=== PATIENT | female | born 1940 | race Caucasian/White ===

== ENCOUNTER 2017-07-30 11:32 | Inpatient (IN) | payer MEDICARE ==
[~2017-07-30] VITALS: Ht 167.6 cm; Wt 64.8 kg
[~2017-07-30 11:32] MED LIST: ALPR1 PO; BISA10S PR; CALCA500CH PO; CALCIUM PO; CIPR500 PO; ERYSTE250 PO; ESTR2 PO; FENTANYL1 EAC1 TD; K-Dur20 MEQ PO; LEVSOD125 PO; LORA.5 PO; LORA1 PO; Lomotil Tablet1 EACH PO; METO10 PO; METR500 PO; OMEPRAZOLE MAGN20 MG; ONDA4 PO; ONDA4ODT SL; ONDA8 SL; OXYC5 PO; PANT40 PO; PROM25 PO; Prilosec Otc20 MG PO; RANI150 PO; RXLORA1 PO; SPIR50 PO; VITAMIN B122500 MC1 PO; ZINC PO; [UNRECOGNIZED DRUG - REMARK]; [UNRECOGNIZED DRUG - REMARK]
[2017-07-30 12:16] LABS: Hematocrit 19.6 % (33.0-51.0); Hemoglobin 6.4 g/dL (11.5-16.0); Mean Corpuscular HGB 29.9 pg (26.0-34.0); Mean Corpuscular HGB Conc 32.7 g/dL (31.5-36.5); Mean Corpuscular Volume 92 fL (80-100); NRBC ABSOLUTE 2.66 K/mm3 (0.00-0.02); NRBC Auto 4.6 /100 WBC (0.0-0.2); Platelet Count 80 K/mm3 (150-400); RDW Standard Deviation 69.1 fL (35.1-46.3); Red Blood Cell Count 2.14 M/mm3 (3.80-5.20)
[2017-07-30 12:20] LABS: White Blood Cell Count 57.25 K/mm3 (4.00-11.30)
[2017-07-30 12:28] LABS: Bilirubin, Direct 13.8 mg/dL (0.0-0.3); Bilirubin, Indirect 3.4 mg/dL (0.1-0.7); Bilirubin, Total 17.2 mg/dL (0.1-1.0)
[2017-07-30 12:30] LABS: International Normalized Ratio 1.13; Prothrombin Time Results 11.8 Sec (9.7-11.5)
[2017-07-30 12:37] LABS: BAND PERCENT MAN 2 % (0-8); BASOPHILS PERCENT MAN 0 % (0-2); EOSINOPHILS PERCENT MAN 0 % (0-6); LYMPHOCYTES PERCENT MAN 18 % (21-46); METAMYELOCYTE ABSOLUTE MAN 5.15 K/mm3 (0.00-0.00); METAMYELOCYTE PERCENT MAN 9 % (0-0); MONOCYTES ABSOLUTE MAN 3.43 K/mm3 (0.16-1.47); MONOCYTES PERCENT MAN 6 % (4-13); NEUTROPHILS ABSOLUTE MAN 38.35 K/mm3 (1.96-9.15); SEG NEUTROPHILS PERCENT MAN 65 % (41-73); TOTAL CELLS COUNTED 100
[2017-07-30 12:39] LABS: Alanine Aminotransfer (ALT/SGP 182 U/L (12-78); Albumin, Blood 1.3 g/dL (3.4-5.0); Albumin/Globulin Ratio 0.5 (0.8-1.8); Alk Phos 390 U/L (50-136); Anion Gap 11 mmol/L (6-16); Aspartate Aminotrans (AST/SGOT 298 U/L (12-37); Bilirubin, Total 17.3 mg/dL (0.1-1.0); Blood Urea Nitrogen 16 mg/dL (8-24); Bun/Creatinine Ratio 32.4 (12.0-20.0); CO2, Blood 20 mmol/L (21-32); Chloride, Blood 113 mmol/L (98-108); Creatinine, Blood 0.49 mg/dL (0.40-1.00); Globulin, Blood 2.6 g/dL (2.2-4.0); Glomerular Filtration Rate >60 (60-); Glucose, Blood 94 mg/dL (70-99); Potassium, Blood 2.4 mmol/L (3.5-5.5); Sodium, Blood 144 mmol/L (136-145); Total Protein, Blood 3.9 g/dL (6.4-8.2)
--- NOTE | 2017-07-30 19:32 | NUR ---
ADMIT NOTE/ SHIFT SUMMARY- PT ADMITTED FOR GI BLEED. PER REPORT PT HAS BEEN HAVING FREQUENT NOSE BLEEDS AND THE FAMILY THOUGHT THE BLOOD IN THE STOOL WAS D/T THE PT SWALLOWING BLOOD. THERE IS A STRONG ODOR TO THE STOOL. PT SKIN IS VERY JAUNDICED AND SHE HAS STAGE 4 PANCREATIC CANCER WITH BALA. PT IS CURRENTLY RECIEVING BLOOD THROUGH HER RIGHT FA IV RECIEVING PROTONIX THROUGH HER LEFT HAND IV AND POTASSIUM THROUGH HER ACCESSED MEDIPORT. PT HAS BEEN RECIEVING REGULAR CHEMO Tx TO THIS POINT. PER REPORT FROM ED PT SPOUSE IS HAVING DIFFICULTY COPING WITH THE PT CONDITION. SHE WAS FULL CODE ALL DAY IN THE ED, UNTIL SHE STATED "NO, I DON'T WANT THAT" (PER REPORT). PT CAME TO MEDICAL FLOOR A DNR. PT HAS IV ANTIBIOTICS IN THE ROOM READY TO RUN WELL IV FLUIDS WITH POTASSIUM. ALL OF THIS WAS PASSED TO ADARSH WOOTEN IN REPORT. SECOND AND FINAL UNIT OF BLOOD WAS STARTED AT SHIFT CHANGE.
[2017-07-30 23:15] LABS: Hematocrit 27.8 % (33.0-51.0); Hemoglobin 9.5 g/dL (11.5-16.0)
[2017-07-31 05:06] LABS: Hematocrit 29.9 % (33.0-51.0); Mean Corpuscular HGB 30.7 pg (26.0-34.0); Mean Corpuscular HGB Conc 33.4 g/dL (31.5-36.5); Mean Corpuscular Volume 92 fL (80-100); NRBC ABSOLUTE 4.13 K/mm3 (0.00-0.02); NRBC Auto 6.4 /100 WBC (0.0-0.2); Platelet Count 99 K/mm3 (150-400); RDW Coefficient Variation 18.3 % (11.7-14.2); RDW Standard Deviation 56.6 fL (35.1-46.3); Red Blood Cell Count 3.26 M/mm3 (3.80-5.20)
[2017-07-31 05:10] LABS: White Blood Cell Count 64.65 K/mm3 (4.00-11.30)
[2017-07-31 05:18] LABS: International Normalized Ratio 1.13; Prothrombin Time Results 11.8 Sec (9.7-11.5)
[2017-07-31 05:25] LABS: Alanine Aminotransfer (ALT/SGP 171 U/L (12-78); Albumin, Blood 1.2 g/dL (3.4-5.0); Albumin/Globulin Ratio 0.4 (0.8-1.8); Alk Phos 375 U/L (50-136); Anion Gap 11 mmol/L (6-16); Aspartate Aminotrans (AST/SGOT 307 U/L (12-37); Bilirubin, Direct 13.4 mg/dL (0.0-0.3); Bilirubin, Indirect 3.7 mg/dL (0.1-0.7); Bilirubin, Total 17.1 mg/dL (0.1-1.0); Blood Urea Nitrogen 18 mg/dL (8-24); Bun/Creatinine Ratio 26.3 (12.0-20.0); CO2, Blood 18 mmol/L (21-32); Calcium, Blood 6.4 mg/dL (8.5-10.1); Chloride, Blood 122 mmol/L (98-108); Creatinine, Blood 0.68 mg/dL (0.40-1.00); Glomerular Filtration Rate >60 (60-); Glucose, Blood 77 mg/dL (70-99); Potassium, Blood 3.4 mmol/L (3.5-5.5); Sodium, Blood 151 mmol/L (136-145); Total Protein, Blood 4.2 g/dL (6.4-8.2)
[2017-07-31 05:28] LABS: BAND PERCENT MAN 4 % (0-8); BASOPHILS PERCENT MAN 0 % (0-2); EOSINOPHILS PERCENT MAN 0 % (0-6); LYMPHOCYTES % ATYPICAL MANUAL 1 % (0-0); LYMPHOCYTES ABSOLUTE MAN 13.57 K/mm3 (0.84-5.20); LYMPHOCYTES PERCENT MAN 20 % (21-46); METAMYELOCYTE ABSOLUTE MAN 3.87 K/mm3 (0.00-0.00); METAMYELOCYTE PERCENT MAN 6 % (0-0); MONOCYTES ABSOLUTE MAN 3.87 K/mm3 (0.16-1.47); MONOCYTES PERCENT MAN 6 % (4-13); MYELOCYTE ABSOLUTE MAN 1.29 K/mm3 (0.00-0.00); MYELOCYTE PERCENT MAN 2 % (0-0); NEUTROPHILS ABSOLUTE MAN 42.02 K/mm3 (1.96-9.15); SEG NEUTROPHILS PERCENT MAN 61 % (41-73); TOTAL CELLS COUNTED 100
--- NOTE | 2017-07-31 07:07 | NUR ---
SUMMARY PT RESTING QUIETLY, MEDICATED FREQUENTLY FOR PAIN PER EMAR, PT UP WITH 1 PERSON ASSIST, FORGETFUL, PLEASANT, VSS, NO ACUTE CHANGES
--- NOTE | 2017-07-31 16:09 | NUR ---
NOTIFIED SPOUSE OF TRANSFER TO ROOM 353.
--- NOTE | 2017-07-31 19:26 | NUR ---
PT ARRIVED TO ROOM 353 AROUND 1600, PT A/OX3, UP WITH ASSIST, PT IS PLEASANT AND COOPERATIVE, PT DENIED ANY PAIN AT THIS TIME, PT ORIENTED TO THE CALL SYSTEM, PT STARTED ON PPN THIS EVENING AND IS TOLERATING WELL AT THIS TIME, CALL LIGHT IN REACH, BED ALARM ON
--- NOTE | 2017-07-31 21:48 | NUR ---
GRACE PRESENT TO R.CHEST WALL. IT WAS ACCESSED PRIOR TO THIS SHIFT AND WAS INFUSING W/PPN AT START OF MY SHIFT. SITE AND DX APPEAR C/D/I.
--- NOTE | 2017-07-31 21:50 | NUR ---
UNABLE TO OBTAIN URINE SPECIMEN THUS FAR D/T CONTAMINATION W/STOOL. WILL TRY AGAIN.
--- NOTE | 2017-08-01 00:15 | NUR ---
NEW 20G IV PLACED TO L.AC THEN RESTARTED PROTONIX GTT. PREVIOUS IV WAS LEAKING AND BLOODY SO WAS DC'D.
--- NOTE | 2017-08-01 00:16 | NUR ---
ASSISTED TO BSC FOR VOID. URINE SPECIMEN OBTAINED AND SENT. RETURNED TO BED W/ 1 ASSIST W/CALL LIGHT IN REACH AND BED ALARM ON.
[2017-08-01 00:47] LABS: Appearance, Urine Clear (Clear); Blood, Urine 4+ (Neg); Color, Urine Amber (P-Yellow); Glucose Qualitative, Urine 2+ (Neg); Ketones, Urine 1+ (Neg); Leukocyte Esterase, Urine 1+ (Neg); Nitrite, Urine Neg (Neg); Protein, Urine 1+ (Neg); Urobilinogen, Urine 1+ (Normal); pH, Urine 6.5 (5.0-8.0)
[2017-08-01 01:11] LABS: Bilirubin, Urine 3+ (Neg)
[2017-08-01 01:13] LABS: Bacteria Mod /hpf; Squamous Epithelial Cells Few /hpf (Few)
--- NOTE | 2017-08-01 05:46 | NUR ---
SUMMARY: A/OX3, PLEASANT AND CALLS APPROPRIATELY. PPN INFUSES TO R.CHEST WALL MEDIPORT, PROTONIX GTT INFUSES TO NEW L.AC IV AND NS AT TKVO TO R.FA IV. IV ABX RECIEVED INTERMITTENTLY. Q6H CHEMBG'S STABLE. UA OBTAINED AND SENT, URINE ORANGE TINGED W/SKIN AND EYES JAUNDICED. PT IS SBA TO BSC AND ASSITANCE PROVIDED FOR REPOSITIONING PRN. LIQUID/UNFORMED STOOLS PERSISTS LIKELY R/T COLITIS AND ROXICODONE RECIEVED X1 FOR TOLERABLE CONTROL OF R.SIDE PAIN. NO ACUTE CHANGES, VSS/AFEBRILE. WILL MONITOR AND REPORT TO DAY RN.
[2017-08-01 06:37] LABS: Anion Gap 11 mmol/L (6-16); Blood Urea Nitrogen 19 mg/dL (8-24); Bun/Creatinine Ratio 27.1 (12.0-20.0); CO2, Blood 18 mmol/L (21-32); Chloride, Blood 114 mmol/L (98-108); Glomerular Filtration Rate >60 (60-); Glucose, Blood 113 mg/dL (70-99); Magnesium, Blood 1.9 mg/dL (1.6-2.4); Phosphorus, Blood 1.9 mg/dL (2.5-4.9); Potassium, Blood 2.9 mmol/L (3.5-5.5); Sodium, Blood 143 mmol/L (136-145); Triglycerides 592 mg/dL (30-160)
[2017-08-01 10:05] LABS: Hematocrit 26.6 % (33.0-51.0); Mean Corpuscular HGB 30.3 pg (26.0-34.0); Mean Corpuscular HGB Conc 33.8 g/dL (31.5-36.5); Mean Corpuscular Volume 90 fL (80-100); NRBC ABSOLUTE 4.83 K/mm3 (0.00-0.02); NRBC Auto 7.6 /100 WBC (0.0-0.2); Platelet Count 150 K/mm3 (150-400); RDW Standard Deviation 57.4 fL (35.1-46.3); Red Blood Cell Count 2.97 M/mm3 (3.80-5.20)
[2017-08-01 10:08] LABS: White Blood Cell Count 63.79 K/mm3 (4.00-11.30)
[2017-08-01 12:42] LABS: BAND PERCENT MAN 11 % (0-8); BASOPHILS PERCENT MAN 0 % (0-2); EOSINOPHILS PERCENT MAN 0 % (0-6); LYMPHOCYTES ABSOLUTE MAN 1.91 K/mm3 (0.84-5.20); LYMPHOCYTES PERCENT MAN 3 % (21-46); METAMYELOCYTE ABSOLUTE MAN 1.91 K/mm3 (0.00-0.00); METAMYELOCYTE PERCENT MAN 3 % (0-0); MONOCYTES ABSOLUTE MAN 1.27 K/mm3 (0.16-1.47); MONOCYTES PERCENT MAN 2 % (4-13); MYELOCYTE ABSOLUTE MAN 3.18 K/mm3 (0.00-0.00); MYELOCYTE PERCENT MAN 5 % (0-0); NEUTROPHILS ABSOLUTE MAN 55.49 K/mm3 (1.96-9.15); SEG NEUTROPHILS PERCENT MAN 76 % (41-73); TOTAL CELLS COUNTED 100
[2017-08-01 15:57] LABS: Vancomycin, Trough 8.3 ug/mL (5.0-10.0)
--- NOTE | 2017-08-01 17:00 | NUR ---
PT A/OX3, JAUNDICE IN COLOR, PLEASANT AND COOPERATIVE , PT GETS UP WITH 1 PERSON SUN TO THE BSC DUE TO IV TUBING, PT MEDICATED FOR PAIN AT TIMES T/O THE DAY, PT APPEARS TO BE BREATHING EASILY AT REST ON RA, FAMILY AT THE BEDSIDE T/O THE DAY, BED ALARM SLAB INSTALLER LIGHT IN REACH, WILL CONTINUE TO MONITOR FOR CHANGES
--- NOTE | 2017-08-01 20:42 | NUR ---
PT T/F TO ROOM 330 AT 2030. PT DENIES COMPLAINTS AND REPORTS NAUSEA IMPROVED. SHE WAS ORIENTED TO HER NEW ROOM AND PROVIDED CALL LIGHT IN REACH. BED ALARM ON FOR POSSIBLE IMPULSIVITY THOUGH THIS RN HAD PT ON PREVIOUS NOCTE SHIFT IN SCU AND SHE CALLED APPROPRIATELY. VSS/AFEBRILE. WARM BLANKET PROVIDED. WILL PROVIDE MEDS AND RESTART PPN MOMENTARILY.
--- NOTE | 2017-08-01 20:53 | NUR ---
COMMENCED TPN VIA R.TARUN PER EMAR TO [facility] WHICH HAD BEEN PREVIOUSLY BEEN ACCESSED.
--- NOTE | 2017-08-01 21:35 | NUR ---
JOE PROVIDED FOR CHEMBG 78. TPN ALSO TO BE COMMENCED.
--- NOTE | 2017-08-01 23:05 | NUR ---
PT RECIEVED PHENERGAN AND FENTANYL FOR GOOD RELIEF OF NAUSEA AND ABDO PAIN.
--- NOTE | 2017-08-01 23:55 | NUR ---
PT RECIEVED REGLAN AND FENTANYL FOR RECURRENT ABDO PAIN AND NAUSEA, SOME RELIEF EXPRESSED. WILL CONTINUE TO MONITOR CLOSELY.
--- NOTE | 2017-08-02 00:33 | NUR ---
APPLEJUICE PROVIDED AGAIN AFTER NAUSEA IMPROVED FOR CHEMBG NOW 60. WILL RECHECK MOMENTARILY FOR IMPROVEMENT OR WORSENING. PT CONT'S SLIGHTLY NAUSEOUS BUT TOLERATING SMALL SIPS OF LIQ'S AT A TIME.
--- NOTE | 2017-08-02 00:42 | NUR ---
CHEMBG IMPROVED TO 128 AND PT APPEARS COMFORTABLE AT THIS TIME. PLAN TO MONITOR CLOSELY AND RECHECK CHEMBG IN A COUPLE HOURS.
--- NOTE | 2017-08-02 01:56 | NUR ---
PT C/O CONTINUED ABDO PAIN AND ANXIETY MAKING SLEEP AND COMFORT DIFFICULT. XANAX AND ROXICODONE RECIEVED, AWAITING EFFECT. TRIALING PO PAIN RELIEF SINCE NAUSEA SLIGHTLY IMPROVED AND QUESTIONING WHETHER FENTANYL WAS MAKING PT MORE NAUSEOUS. WILL EVALUATE EFFECTIVENESS.
--- NOTE | 2017-08-02 02:52 | NUR ---
PT IS SLEEPING AND APPEARS COMFORTABLE AFTER ATIVAN AND ROXICODONE. CBG 117 AND WILL RECHECK AT 0600.
--- NOTE | 2017-08-02 03:22 | NUR ---
SUMMARY: A/OX3 BUT IS OCCASIONALLY FORGETFULL AND IMPULSIVE TO TOILET. BED ALARM ON. SHE'S WEAK AND SLOW TO T/F AND REPOSITION. CONTROL OF NAUSEA AND ABDO PAIN WERE DIFFICULT TO ACHIEVE THIS SHIFT. SHE HAD IV FENTANYL X3 DOSES WELL IV ZOFRAN, PO PHENERGAN AND IV REGLAN. THESE PROVIDED ONLY TEMPORARY RELIEF BUT SHE EVENTUALLY WAS ABLE TO TOLERATE PO OXYCODONE AND XANAX WHICH SEEMED TO BE MOST EFFECTIVE AT PROVIDING COMFORT. SHE HAD ONE EPISODE OF EMESIS TOWARD START OF SHIFT W/PAIN SEEMING TO EXACERBATE NAUSEA AND FENTANYL POSSIBLY FURTHER UPSETTING HER STOMACH. SHE WAS ABLE TO TOLERATE PO FLUIDS AFTER ANTIAMETICS AND THESE WERE PROVIDED TO BRING UP HER BLOOD SUGARS. CBG'S WERE MONITORED CLOSELY T/O NOCTE D/T CBG GETTING LOW 60. THESE HAVE STABILIZED W/TPN INFUSING TO R.CW MEDIPORT AND JUICES ENCOURAGED TOLERATED. PT WAS REPOSITIONED FOR COMFORT AND ASSISTED TO BSC W/ASSIST. SHE CONT'S TO HAVE BRIGHT YELLOW/ORANGE URINE W/LIQ BM'S. NO EVIDENCE BLOOD IN STOOLS. PROTONIX GTT INFUSES AND 2ND IV HAS NS AT TKVO BTWN IV ABX. SKIN AND SCLERA OF EYES ARE JAUNDICED AND HER ABDO CONT'S DISTENDED/TENDER. NO ACUTE CHANGES BUT CONDITION SEEMS TO BE WORSENING. VSS/AFEBRILE. PT SLEPT INTERMITTENTLY. WILL MONITOR AND REPORT TO DAY RN.
[2017-08-02 05:51] LABS: Hematocrit 29.5 % (33.0-51.0); Mean Corpuscular HGB 31.6 pg (26.0-34.0); Mean Corpuscular HGB Conc 33.9 g/dL (31.5-36.5); NRBC Auto 8.6 /100 WBC (0.0-0.2); Platelet Count 208 K/mm3 (150-400); RDW Standard Deviation 60.3 fL (35.1-46.3); Red Blood Cell Count 3.16 M/mm3 (3.80-5.20)
[2017-08-02 05:57] LABS: Mean Corpuscular Volume 93 fL (80-100)
[2017-08-02 05:58] LABS: White Blood Cell Count 69.69 K/mm3 (4.00-11.30)
--- NOTE | 2017-08-02 06:01 | NUR ---
CRITICAL WBC'S AGAIN THIS AM AT 69.69. WILL ENSURE DAY STAFF ARE AWARE BUT DID NOT NOTIFY MD D/T CRITICAL RESULTS X4 DAYS THAT ARE VIRTUALLY UNCHANGED.
[2017-08-02 06:11] LABS: Anion Gap 13 mmol/L (6-16); Blood Urea Nitrogen 18 mg/dL (8-24); Bun/Creatinine Ratio 27.4 (12.0-20.0); CO2, Blood 18 mmol/L (21-32); Calcium, Blood 6.8 mg/dL (8.5-10.1); Chloride, Blood 108 mmol/L (98-108); Creatinine, Blood 0.66 mg/dL (0.40-1.00); Glomerular Filtration Rate >60 (60-); Glucose, Blood 95 mg/dL (70-99); Magnesium, Blood 1.8 mg/dL (1.6-2.4); Phosphorus, Blood 2.8 mg/dL (2.5-4.9); Potassium, Blood 2.9 mmol/L (3.5-5.5); Sodium, Blood 139 mmol/L (136-145)
[2017-08-02 06:35] LABS: BAND PERCENT MAN 6 % (0-8); BASOPHILS PERCENT MAN 0 % (0-2); EOSINOPHILS PERCENT MAN 0 % (0-6); LYMPHOCYTES ABSOLUTE MAN 1.39 K/mm3 (0.84-5.20); LYMPHOCYTES PERCENT MAN 2 % (21-46); METAMYELOCYTE ABSOLUTE MAN 2.09 K/mm3 (0.00-0.00); METAMYELOCYTE PERCENT MAN 3 % (0-0); MONOCYTES ABSOLUTE MAN 0.69 K/mm3 (0.16-1.47); MONOCYTES PERCENT MAN 1 % (4-13); MYELOCYTE ABSOLUTE MAN 1.39 K/mm3 (0.00-0.00); MYELOCYTE PERCENT MAN 2 % (0-0); NEUTROPHILS ABSOLUTE MAN 64.11 K/mm3 (1.96-9.15); SEG NEUTROPHILS PERCENT MAN 86 % (41-73); TOTAL CELLS COUNTED 100
[2017-08-02 08:42] LABS: Triglycerides 714 mg/dL (30-160)
--- NOTE | 2017-08-02 11:56 | NUR ---
Chaplian and physician in to see patient and . We are transitioning to comfort measures. Patient showing S/S of decline will wait on hospice discharge and reevaluate. pt periods of alert complains of mild headache and ringing in ears. No nausea at this time but genreal pain. Want to eat and dring. Tolerating but lots of belching. Sleral edema and jaundice. Abdomen distended. Patient needing to void frequently. May decrease as we reduce tpn. If patient uncomfortable we can request muro for comfort. very anxious and worried about getting some tasks done advised him to go take a break and we will have volunteers and staff check frequently. Chaplian updated of change in plan case managment updated.
--- NOTE | 2017-08-02 12:08 | NUR ---
Met with Marjan Villarreal outside of room. He recognizes the need for hospice services and expressed some concerns about managing Raya's needs on his own. He has taken very good care of her this past year, and I affirmed his devotion and love. Suggested "comfort measures only" while she is hospitalized to manage pain. He agrees that pain management is his top priority, and accepts this recommendation. I provided theraputic listening and gentle anticipatory bereavement addiction treatment counselor. He appeared releived to have been heard and understood. I will continue to provide addiction treatment counselor and comfort to this couple in coming days.
--- NOTE | 2017-08-02 12:14 | NUR ---
Pt and pt's gave okay for SN to give care.
--- NOTE | 2017-08-02 14:40 | NUR ---
PAIN MEDS EFFECTIVE BUT NEEDED EVERY 1-2 HOURS. INTERMITTENTLY SLEEPING WITH RR UNLABORED. FAMILY ATTENTIVE AND AT BEDSIDE; TAKES PREMA SIPS OF WATER AND PO PAIN MEDS WELL.
--- NOTE | 2017-08-02 15:36 | NUR ---
PT RESTING WITH EYES CLOSED; RR EVEN AND UNLABORED; FAMILY AT BEDSIDE
--- NOTE | 2017-08-02 15:40 | NUR ---
FAMILY EDUCATION ANSWERED FAMILY'S QUESTIONS ABOUT GIVING OR STOPPING TPN. FAMILY STATES "SHE HAS STATED THAT SHE DOESN'T WANT TO LIVE THIS WAY"; FAMILY GIVEN OPTION TO CONTINUE OR DISCONTINUE TPN. FAMILY CHOSE TO DISCONTINUE FEEDINGS.
--- NOTE | 2017-08-02 17:22 | NUR ---
SHIFT SUMMARY; PATIENT RESTING IN BED; VERY WEAK BUT ABLE TO USE BSC WITH ASSIST; JAUNDICE; PAIN MEDICATIONS GIVEN EVERY 1-2 HOURS. COMFORT CARE WITH PLAN TO REMAIN IN HOSPITAL SPOUSE FEELS INABILITY TO CARE FOR PT AT HOME. RESPONDS TO QUESIONS AND VERBALIZES NEED FOR PAIN MEDICATIONS. FAMILY AT BEDSIDE FOR MOST OF DAY ATTENTIVE AND APPROPRIATE.
--- NOTE | 2017-08-02 18:06 | NUR ---
PT RESTING WITH EYES CLOSED RR EVEN AND UNLABORED; FAMILY AT BEDSIDE; NO DISTRESS
--- NOTE | 2017-08-02 18:07 | NUR ---
PT RESTING WITH EYES CLOSED RR EVEN AND UNLABORED; EASILY AWAKENED BY VERBAL STIMULI; REPOSITIONED ONTO LEFT SIDE LYING POSITION WITH PILLOWS.
--- NOTE | 2017-08-03 06:10 | NUR ---
SHIFT SUMMARY PT REMAINS A&O TO SELF, FAMILY AND FOLLOWING DIRECTIONS. PT DOES NOT USE THE CALL LIGHT WHEN NEEDED, BED ALARM ON SHE WILL ATTEMPT TO GET OUT OF BED BY HERSELF. HAS DONE WELL WITH 1 PERSON ASSIST TO BSC. REMAINS ON 1L O2 VIA NC FOR COMFORT. MEDICATED X2 FOR PAIN (SEE EMAR) AND NEW FENTANYL PATCH WAS APPLIED AT SCHEDULED TIME ON THE LEFT UPPER ARM. OVERALL, PT RESTED WELL AND IT WAS EASILY COMFORTED. WILL CONTINUE TO CARE FOR UNTIL RN HANDOFF.
--- NOTE | 2017-08-03 07:30 | NUR ---
PT A/O. STATES NO PAIN AT THIS TIME. WILL MONITOR. IS ON COMFORT CARE. CC CART IN ROOM. IN ROOM, LOLY [place]HTON. HE STATES COMFORTABLE TO ASK OR CALL ME IF HAS NEEDS. HE STATES DOES TURN PT AND ASSIST SHE REQUESTS. ADVISES WE ARE HERE TO HELP, JUST PRESS CALL LITE FOR ASST. PT STATES COMFORTABLE AT THIS TIME. TURNED. IS CEAN & DRY AT THIS TIME. BED IN LOW POSITION, CALL LITE IN REACH. CALLS APPROP.
--- NOTE | 2017-08-03 15:18 | NUR ---
SPOKE TO . PT RESTING, DID NOT AWAKEN. SHE QUIET. RESP EASY UNLABORED. EYES CLOSED. LOOKS RELAXED, NO RESTLESSNESS NOTED. CONTINUE TO MONITOR.
--- NOTE | 2017-08-03 15:54 | NUR ---
Raya was resting and appeared comfortable and well supported. I provided companionship and encouragement to her and two sons. They were warm, open and attentive to each other and seemed to be coping adequately. No indicators of complex bereavement identified.
--- NOTE | 2017-08-03 18:33 | NUR ---
PT PLEASANT TODAY. JUST COMPLAINED OF SOME NAUSEA, NOT PAIN. MED PER EMAR. GRANDSON IN ROOM AT THIS TIME. PT DENIES PAIN AT THIS TIME. BED IN LOW POSITION,C ALL LITE IN REACH. CALLS APPROP, FAMILY DOES CALL REQUESTS BECOME KNOWN TO THEM
--- NOTE | 2017-08-04 06:06 | NUR ---
SUMMARY PT RESTING QUIETLY IN BED, REMAINS ON COMFORT CARE, MEDICATED PER EMAR FOR COMFORT, NO VISITORS IN DURING THE NIGHT, PT IS MORE WEAK AND WAS UNABLE TO GET UP TO THE COMMODE, ATTENDS ARE IN PLACE, NO ACUTE CHAGES, WILL CONT TO MONITOR
--- NOTE | 2017-08-04 07:40 | NUR ---
PT. SLEEPING SOUNDLY, SPOUSE AT BEDSIDES REQUEST SHE NOT BE BOTHERED AT THIS TIME, NO TURNING MEDS ETC.
--- NOTE | 2017-08-04 08:49 | NUR ---
PATIENT HAS FAMILY PRESENT IN ROOM AT THIS TIME. I NOTIFIED SANDWICH AND DRINK CART OPERATOR OF COMFORT CARE CART NEEDING TO BE REFILLED. THEY BROUGHT A NEW ONE. I MADE NEW COFFEE AND HOT WATER AND BROUGHT IT INTO ROOM.
--- NOTE | 2017-08-04 09:38 | NUR ---
PT. STILL SLEEPING SPOUSE AND ANOTHER VISITOR IN ROOM. REQUESTS ONCE AGAIN THAT WE NOT DO ANYTHING WITH HER UNTIL SHE WAKES UP.
--- NOTE | 2017-08-04 11:01 | NUR ---
Met with pt's spouse Rohan. The couple known from previous admittance. Pt was known responsive. According to Rohan, many family and friends had visited yesterday when pt was still communicative. Rohan reminisced at length about pt's health and their time together. Pt admits the difficulty of coming home to an empty house at night. I normalized his feelings and offered pastoral support. Rohan reflects on his sarita and spiritual journey. He expresses gratitude for being able to attend a confucianism with his in between hospital visits. Pt asked if he had given his spouse over to God. He responded, "I have to, I have no choice." I validated he statement and offered a prayer for the pt and his person. Pt verbalized gratitude for the intervention and visit. Rohan able to vocalize his spouse's EOL situation. I will remain available.
--- NOTE | 2017-08-04 11:18 | NUR ---
PT. STILL SLEEPING SPOUSE AT BEDSIDE, NO S/S OF DISCOMFORT OR PAIN. PT. WARM TO TOUCH BLE 2+ PITTING EDEMA JAUNDICED T/O, NO MOTTLING NOTED. PT. DID NOT STIR WHEN I WAS ASSESSING HER.
--- NOTE | 2017-08-04 11:25 | NUR ---
PATIENTS MOUTH WAS VERY DRY AND WAS IN NEED OF ORAL CARE. I DID ORAL CARE ON PATIENT AT 1115. PATIENT WAS TOLERABLE OF MOUHT CARE BUT TOWARD THE END SHE BEGAN TO CLOSE MOUTH AND NOT ALLOW ME TO PUT ANYTHING JOSE IN MOUTH. AFTER MOUTH CARE I APPLIED MOUTH MOISTURIZER TO LIPS THEY WERE VERY DRY. WAS PRESENT AT TIME OF MOUTH CARE.
--- NOTE | 2017-08-04 11:27 | NUR ---
Brief visit per request. He is wanting pt to rest undisturbed as additional visitors, friends & family expected later today and he is hopeful she will be wakeful at that time. Pt appears to be resting comfortably. I instructed in nonverbal cues that pt may be experiencing pain and he states he has not noted any of those indicators. I asked that he report them to pt's nurse or other staff if noted. Pt does not appear to be struggling with breath. and visitor indicate they have everything they need. I thanked them for being present and encouraged them to let us know if there was anything we can do to be of service to them at this time.
--- NOTE | 2017-08-04 14:09 | NUR ---
PT. STARTING TO COUGH UP SECRETIONS, SUCTION HOOKED UP AND SCOPALAMINE PATCH APPLIED BEHIND RIGHT EAR. SWABS USED TO CLEAN MOUTH. SEVERAL FAMILY MEMBERS IN ROOM.
--- NOTE | 2017-08-04 18:17 | NUR ---
PATIENT HAS NOT BEEN RESPONDING AT ALL THIS SHIFT TO TOUCH OR VOICES. PATIENT HAS NOT EATNE AT ALL THIS SHIFT. PATIENT HAS BEEN SLEEPING ALL SHIFT. PATIENT APPEARS COMFORTABLE AND APPEARS TO BE IN NO PAIN AT THIS TIME.
--- NOTE | 2017-08-04 19:38 | NUR ---
PT. HAS NOT BEEN AWAKE ALL SHIFT, HAS BEEN GIVEN ROXANOL ONCE TODAY. BREATHING SEEMS TO BE MORE SHALLOW THAN THIS AM, DOES NOT RESPOND TO VERBALIZATION. SCOPALIMINE PATCH PLACED FOR INCREASING SECRETIONS.
--- NOTE | 2017-08-05 04:41 | NUR ---
SHIFT SUMMARY THE PATIENT HAS BEEN NON-RESPONSIVE ALL NIGHT. SHE HAS GIVEN NO INDICATORS OF PAIN OR DISTRESS. HER BRIEF HAS BEEN DRY ALL NIGHT WITH THE EXCEPTION OF ONE WHICH WAS SATURATED THROUGH. Q2HR TURNS PROVIDED. NO ACUTE CHANGES NOTED OR REPORTED. WILL CONTINUE TO MONITOR AND PROVIDE CARE NEEDED.
--- NOTE | 2017-08-05 07:41 | NUR ---
PT RESTING IN BED, FAMILY AT THE BEDSIDE, PT APPEARS TO BE BREATHING EASILY ON O2 @2L/MIN
--- NOTE | 2017-08-05 08:53 | NUR ---
PATIENT IS AWAKE AND RESPONSIVE THIS SHIFT. PATIENTS EYES WERE MATTED SHUT SO I WASHED THEM WITH WARM WATER AND AND SOAP. PATIENT STATED SHE HAD TO USE BATHROOM. RN AND I ASSISTED PATIENT TO USE BEDPAN AND PATIENT WAS ABLE TO USE IT. CURRENT ATTENDS WERE WET SO NEW ATTENDS WERE APPLIED AFTER PATIENT WAS CLEANED UP. PATIENT WAS ALSO SCOOTED UP IN BED. PATIENT WAS MADE COMFORTABLE IN EBD. PATIENT DID HAVE COMPLAINTS OF PAIN SO RN WAS NOTIFIED. THE COMFORT CARE CART WAS REPLENSHED BY ORACLE DATABASE ANALYST AFTER I PUT IN A REQUEST DUE TO FAMILY BEING PRESENT.
--- NOTE | 2017-08-05 08:58 | NUR ---
PATIENTS URINE IS VERY DARK BROWN IN COLOR AND HAS AN ODOR. RN WAS NOTIFIED.
--- NOTE | 2017-08-05 11:09 | NUR ---
PALLATIVE CARE IN WITH THE PT, PT MEDICATED FOR PAIN AT THIS TIME
--- NOTE | 2017-08-05 11:26 | NUR ---
Visited with Raya and her . Raya is painful when this verse writer entered the room. Lloyd Raya's nurse contacted and he will bring in some pain medication for her. Raya is jaundiced and is c/o being too hot. Blankets removed and a sheet left over her legs. Fan placed at bedside and turned to low to provide air movement. Fan isn't pointed directly on Raya. Oral care given after Raya medicated for pain and appeared to be more comfortable. Emotional support given to pt's . He reports Raya slept most of yesterday but appears to be more awake an uncomfortable today. She has a fentanyl patch on and is being medicated with prn pain medications. WIll consider increasing pain meds if current plan is not effective for pain and symptom relief.
--- NOTE | 2017-08-05 12:16 | NUR ---
PATIENT STATED SHE HAD TO USE THE BATHROOM. RN AND I PUT PATIENT ON THE BEDPAN AND PATIENT WAS ABLE TO VOID. PATIENT WAS THEN ABLE TO REST. PATIENTS ATTENDS WERE DRY AT THIS TIME. PATIENT DID HAVE A SLIGHT FEVER OF 99.8. RN WAS NOTFIFIED. PATIENT HAD NO COMPLAINTS OF PAIN AT THIS TIME. RN AND I REPOSITIONED PATIENT.
--- NOTE | 2017-08-05 16:22 | NUR ---
PATIENTS SPOUSE HAS REQUESTED THAT WE KEEP UP ON PAIN MEDICINE FOR THE PATIENT. SPOUSE DOES NOT WANT THE PATIENT IN ANY DISCOMFORT AT ALL AND IN NO PAIN. SPOUSE IS VERY CONCERNED ABOUT HER BEING IN PAIN. I ASSURED SPOUSE THAT RN AND I WOULD BE CHECKING ON PATIENT FREQUENTLY AND THAT RN WOULD GIVE PAIN MEDICINE IF NEEDED.
--- NOTE | 2017-08-05 16:28 | NUR ---
PT DROWSY TODAY, HOWEVER IS MORE ALERT TODAY COMPARED TO YESTERDAY ACCORDING TO THE FAMILY, PICKARD CATHETER INSERTED TODAY PER FAMILY REQUEST AND DR. THAKKAR ORDER FOR END OF LIFE COMFORT, PT MEDICATED T/O THE DAY FOR PAIN, PTS AND FAMILY AT THE BEDSIDE FOR MOST OF THE DAY, CALL LIGHT IN REACH
--- NOTE | 2017-08-06 04:38 | NUR ---
WASTE WATER TREATMENT PLANT OPERATOR SUMMARY NO ACUTE CHANGES. PT REMAINS ON COMFORT CARE. TREATED FOR PAIN WITH ROXANOL THROUGH THE NIGHT. GAVE PT 1 MG ATIVAN X1 TONIGHT FOR RESTLESSNESS. ALL IV MEDS STILL GIVEN THROUGH MEDIPORT. REPOSITIONED MULTIPLE TIMES THROUGH THE NIGHT. WILL CONTINUE TO MONITOR.
--- NOTE | 2017-08-06 08:28 | NUR ---
PT RESTING IN BED, MOANING NOTED THAT APPEARS TO COINCIDE WITH BREATHS SO MAY BE MORE BREATH RELATED. MEDICATED FOR PAIN PER FAMILY REQUEST. DISCUSSED WITH FAMILY SIGNS TO WATCH FOR AND THAT HER BREATHING MAY CHANGE AND HAVE PAUSES. APNEIC PERIODS NOTED. SKIN WARM BUT NO TEMP, JAUNDICE, NO MOTTLING NOTED AT THIS TIME. UNRESPONSIVE. PALLIATIVE CARE NURSE CAME BY TO CHECK ON PT WELL. NO FURTHER NEEDS AT THIS TIME
--- NOTE | 2017-08-06 08:54 | NUR ---
Raya appears to be comfortable at this time. She is having short 3-4 second periods of apnea at times. She remains jaundiced. Raya's reports she has been unresponsive to him since he arrived at 0700 this morning. Emotional support given to family. Family denies needs at this time. Explained that O2 could be removed and that it may hasten Raya's if family chose to do that. Raya's states he would like to keep the O2 on at this time. Will continue on focusing to keep Raya comfortable and supporting her family.
--- NOTE | 2017-08-06 10:51 | NUR ---
PT'S APNEIC PAUSES ARE GETTING SIGNIFICANTLY LONGER. PT'S AT BEDSIDE WITH IT COMMUNICATIONS SPECIALIST. SEEMS THAT MOANS COINCIDE WITH RESPIRATIONS. DISCUSSED WITH AND WILL RECHECK ON PT SOON TO DETERMINE COMFORT. DID NOT WANT TO GIVE FURTHER MEDS THAT COULD REDUCE RESPIRATIONS FURTHER
--- NOTE | 2017-08-06 12:01 | NUR ---
Raya was non-communicative and unconscious. She appeared comfortable and well cared for. No signs of dicomfort, stress or pain noted. Her respirations were spaced out considerably but non-agonal in nature. Her Rohan was at the bedside showing loving attention and concern. I facilitated life and sarita review, and listened supportively to Rohan share meaningful stories and cherished memories. I provided therapeutic listening and compassionate presence, and offered theological encouragement around the dying process and inspirational prayer to engender hope and create peace. Rohan engaged well, contributed substantively to the interaction, and showed positive indications of adequate coping, stable sarita and emotional stamina.
--- NOTE | 2017-08-06 14:47 | NUR ---
PT CONTINUES TO REST IN BED WITH APNEIC PAUSES THAT SEEM TO BE GETTING LONGER. FAMILY AT BEDSIDE. MEDICATED FOR PAIN AND AIR HUNGER. NO FURTHER NEEDS OR CONCERNS AT THIS TIME
--- NOTE | 2017-08-06 17:56 | NUR ---
SHIFT SUMMARY: PT CONTINUES WITH COMFORT CARE REQUIRING MEDS FOR DYSPNEA AND DISCOMFORT ABOUT EVERY TWO HOURS. FAMILY LEFT AT 4PM. PT APPEARS COMFORTABLE AT THIS TIME
--- NOTE | 2017-08-06 21:49 | NUR ---
08/06/[id number] has been resting comfortable. resp at shallow and has a few apnic spells
--- NOTE | 2017-08-07 01:01 | NUR ---
08/07/17 sleeping no distress
--- NOTE | 2017-08-07 03:51 | NUR ---
08/07/17 0445 pt's breathing was a little more labored and appeared to be in pain. antivan and roxanol were givne. pt was repositioned for comfort. muro was emptied for 700 green slimey urine.
--- NOTE | 2017-08-07 03:57 | NUR ---
08/07/17 0400 mediport was flushed with heparin after ativan .
--- NOTE | 2017-08-07 03:59 | NUR ---
08/07/17 0400 resting comfortable after meds were given
--- NOTE | 2017-08-07 05:33 | NUR ---
08/07/17 shift summary [id number] respirations are swallow and is not moaning
--- NOTE | 2017-08-07 06:50 | NUR ---
08/07/17 0625 pt had passed, prounced by edwin Delarosa R.N. at 0608/07/17 mediport hubar needle removed.. bhaskar ferreira'sudhir green urine. attends applied. giuliana called and zackery (niece) called and notifed of
--- NOTE | 2017-08-07 06:54 | NUR ---
08/07/17 0545 resp swallow, not moaning
== END 2017-08-07 06:25 | disposition home or self-care (01) | DRG 871 ==
LOC: ER 11:32 → PCU 16:18 → MEDS 16:18 → ER 16:18 → MEDS 18:13
PROVIDERS: Emergency Medicine; ADMIT Hospitalist
DX: A41.9 Sepsis, unspecified organism (principal); K83.1 Obstruction of bile duct; C25.9 Malignant neoplasm of pancreas, unspecified; C78.7 Secondary malignant neoplasm of liver and intrahepatic bile duct; Z93.4 Other artificial openings of gastrointestinal tract status; A09 Infectious gastroenteritis and colitis, unspecified; R62.7 Adult failure to thrive; Z51.5 Encounter for palliative care; Z90.49 Acquired absence of other specified parts of digestive tract; E03.9 Hypothyroidism, unspecified
CPT/HCPCS: 36415; 36416; 36430; 71010; 74177; 80048; 80053; 80076; 80202; 81001; 82140; 82247; 82248; 82947; 83605; 83735; 84100; 84478; 85014; 85018; 85025; 85610; 85730; 86301; 86850; 86900; 86901; 86923; 87040; 93005; 93010; 96361; 96365; 96366; 96368; 96375; 96376; 99285; C9113; J1450; J1642; J2001; J2060; J2270; J2405; J2543; J2765; J3010; J3370; J3411; J3480; J7030; J7040; J7050; J7060; P9016; Q9967